=== PATIENT | female | born 1990 | race Two or more races ===

== ENCOUNTER → 2017-06-25 08:48 | Day surgery (SDC) | payer BC ==
[~2017-06-25 08:48] MED LIST: Buffered Lidocaine 0.9% SYRIN* 5 ML/SYR SYRINGE INTRADERM ONE; Buffered Lidocaine 0.9% SYRIN* 5 ML/SYR SYRINGE ONE; Dexamethasone IV* 4 MG/ML 1 ML (4 MG) IV SLOW PU ONE; Dexamethasone IV* 4 MG/ML 1 ML (4 MG) ONE; Famotidine IV* 10 MG/ML 2 ML (20 mg) IV ONE; Famotidine IV* 10 MG/ML 2 ML (20 mg) ONE; HYDROcodone/ACETAMIN 5-325 MG* 1 TAB PO PRN; Lidocaine 1% MPF wEPI 200,000* 30 ML SDV ONE; Lidocaine 2% PF * 5 ML VIAL ONE; Midazolam* 1 MG/ML 5 ML VIAL (5 MG) ONE; Ondansetron INJ* 2 MG/ML VIAL ONE; PROCHLORPERAZINE INJ 5 MG/ML 2 ML VIAL IV PRN; Propofol* 10 MG/ML 20 ML BTL IV PUSH ONE; fentaNYL* 50 MCG/ML 2 ML VIAL (100 MCG VIAL) IV PRN; fentaNYL* 50 MCG/ML 2 ML VIAL (100 MCG VIAL) ONE; oxyCODONE/Acetamin 5/325 MG* TAB PO PRN
[2017-06-25 11:59] VITALS: BP 122/71
--- NOTE | 2017-06-26 05:10 | OP ---
DATE OF OPERATION: 06/25/17 - [facility] DATE OF : 89 SURGEON: Randy De La Cruz MD ANESTHESIOLOGIST: Bobby Yu MD ANESTHESIA: General PRE-OP DIAGNOSIS: Localized lymph nodes in the right neck. POST-OP DIAGNOSIS: Localized lymph nodes in the right neck. OPERATIVE PROCEDURE: Excisional biopsy of right neck lymph nodes under general endotracheal anesthesia. COMPLICATIONS: None. DISPOSITION: Good. SPECIMEN: Right neck lymph nodes. DESCRIPTION OF PROCEDURE: The patient was taken to the operating room, placed on the supine position on the operating room table. General anesthesia was induced and she was maintained with general anesthesia. Her head was turned to expose the right side of the neck and she was prepped with Betadine and draped in a sterile fashion. Incisions were made over the most prominent areas of lymphadenopathy and injected with 1% lidocaine with 1:200,000 epinephrine. Incision made with a 15 blade and the skin was opened. Just underneath this was the greater auricular nerve coming up from the sternocleidomastoid muscle. Using primarily blunt dissection and bipolar, I dissected out what appeared to be matted nodes, either this or they were thickened fibrotic fatty tissue, I really could not tell. But they were sent for a standard pathology for examination. Hemostasis was ensured and the skin was closed with 3-0 deep dermal Vicryl and running subcuticular 4-0 Vicryl Rapide, Steri-Strips, and Mastisol. The patient tolerated the procedure well. No complications. Transferred to Recovery in stable condition. [id number] #: [id number] [facility]
== END | disposition home or self-care (01) ==
LOC: OR 08:48
PROVIDERS: ATTEND Otolaryngology
DX: D47.Z2 Castleman disease (principal); I73.00 Raynaud's syndrome without gangrene; J35.8 Other chronic diseases of tonsils and adenoids; J45.30 Mild persistent asthma, uncomplicated
CPT/HCPCS: 81025; 88184; 88188; 88305; 88307; 88333; 88341; 88342; 88360; J1100; J2001; J2250; J2405; J2704; J3010